=== PATIENT | female | born 1950 | race Caucasian/White ===

== ENCOUNTER → 2023-07-13 12:11 | Outpatient (REF) | payer MEDICARE, OTHER, SELFPAY | LOC: RAD 12:11 | PROVIDERS: ATTENDING PHYSICIAN Physician Assistant Medical | DX: R93.89 Abnormal findings on diagnostic imaging of other specified body structures (principal) | CPT/HCPCS: 71046 ==

== ENCOUNTER → 2023-08-24 12:31 | Outpatient (REF) | payer MEDICARE, OTHER, SELFPAY | LOC: RAD 12:31 | PROVIDERS: ATTENDING PHYSICIAN Physician Assistant Medical | DX: R05.1 Acute cough (principal) | CPT/HCPCS: 71260; Q9967 ==

== ENCOUNTER → 2023-09-28 14:12 | Outpatient (REF) | payer MEDICARE, OTHER, SELFPAY | LOC: RAD 14:12 | PROVIDERS: ATTENDING PHYSICIAN Physician Assistant Medical; REFERRING PHYSICIAN Internal Medicine Critical Care Medicine | DX: E04.1 Nontoxic single thyroid nodule (principal) | CPT/HCPCS: 76536 ==

== ENCOUNTER → 2023-10-23 12:22 | Outpatient (REF) | payer MEDICARE, OTHER, SELFPAY | LOC: RAD 12:22 | PROVIDERS: ATTENDING PHYSICIAN Physician Assistant Medical | DX: R05.1 Acute cough (principal) | CPT/HCPCS: 71046 ==

== ENCOUNTER → 2024-02-24 10:53 | Outpatient (REF) | payer MEDICARE, OTHER, SELFPAY | LOC: WDC 10:53 | PROVIDERS: ATTENDING PHYSICIAN Physician Assistant Medical | DX: Z12.31 Encounter for screening mammogram for malignant neoplasm of breast (principal) | CPT/HCPCS: 77063; 77067 ==

== ENCOUNTER → 2025-03-06 13:07 | Outpatient (REF) | payer MEDICARE, OTHER, SELFPAY | LOC: WDC 13:07 | PROVIDERS: ATTENDING PHYSICIAN Physician Assistant Medical | DX: Z12.31 Encounter for screening mammogram for malignant neoplasm of breast (principal); E04.1 Nontoxic single thyroid nodule | CPT/HCPCS: 76536; 77063; 77067 ==

== ENCOUNTER → 2025-03-30 11:00 | Outpatient (REF) | payer MEDICARE, OTHER, SELFPAY | LOC: RAD 11:00 | PROVIDERS: ATTENDING PHYSICIAN Internal Medicine; FAMILY PHYSICIAN Physician Assistant Medical | DX: M81.0 Age-related osteoporosis without current pathological fracture (principal) | CPT/HCPCS: 77080 ==

== ENCOUNTER → 2025-04-05 10:33 | Outpatient (REF) | payer MEDICARE, OTHER, SELFPAY ==
[2025-04-05 10:40] VITALS: BP 189/90; BP_SYST 83
== END ==
LOC: RADI 10:33
PROVIDERS: ATTENDING PHYSICIAN Physician Assistant Medical
DX: E04.1 Nontoxic single thyroid nodule (principal)
CPT/HCPCS: 10005; 88173

== ENCOUNTER 2025-05-09 19:18 | Inpatient (IN) | payer MEDICARE, OTHER, SELFPAY ==
[2025-05-03 13:15] VITALS: BMI 23.3
[2025-05-09] VITALS (17 sets, daily range): BP systolic 93–180; BP diastolic 54–109; BMI 23.3
[2025-05-09] MEDS: NORMOSOL-R/PLASMALYTE-A 1000 IV (12:30)
[2025-05-09] MEDS: TYLENOL 1000 MG PO (12:46)
[2025-05-09] MEDS: NEURONTIN 300 MG PO (12:46)
[2025-05-09] MEDS: HEPARIN 5000 UNITS SC (13:56)
--- NOTE | 2025-05-09 15:35 | OR.RPT ---
Operative Report
Operative Report
DATE OF OPERATION: May 09, 2025
PREOPERATIVE DIAGNOSIS: Left Thyroid Nodule - E041
POSTOPERATIVE DIAGNOSIS: Same
SURGEON: Chris Islas M.D.
OPERATION: Left Thyroidectomy and Left Level Limited Neck Dissection � 11885
Autotransplant of Left Superior and Inferior Parathyroid Glands in the Right SCM muscle
ANESTHESIA: GET
ESTIMATED BLOOD LOSS: 1 cc
DRAINS: None
SPECIMEN: left total thyroid lobe and isthmus and left level paratracheal tissue
FINDINGS: Left thyroid nodule
COMPLICATIONS: None
PROCEDURE:
The patient was taken to the operating room and placed in the usual supine position. After adequate general endotracheal anesthesia was established, the patient�s neck was extended, prepped, and draped in the typical sterile fashion. A 4 cm
transcervical incision was made two fingerbreadths above the sternal notch. The skin incision was made with the #15 blade, which was taken through the skin into the subcutaneous tissue. The underlying platysma muscle was divided, and subplatysmal
flaps were created superiorly to the thyroid cartilage and inferiorly to the sternal notch. Strap muscles were identified and at the midline.
Attention was turned to the patient�s left thyroid lobe. The left thyroid lobe was mobilized medially. During this process, the left middle thyroid vein and inferior thyroid artery were dissected and ligated with Ligasure. Next, the left superior
pole was taken down by dissecting and transecting the superior pole vessels with a Ligasure. The left thyroid lobe was mobilized medially. During this process, the left recurrent laryngeal nerve was identified and preserved throughout its entire
course. The left superior and inferior parathyroid glands were identified and preserved. The left thyroid lobe with isthmus was resected from the trachea and sent to the pathology department.
At this time, the left neck dissection was performed. The tissue between the left carotid artery to the trachea into the anterior mediastinum was carefully dissected. The previously identified recurrent laryngeal nerve and parathyroid glands were
preserved. The tissue was removed and sent to the pathology department.
The left inferior and superior parathyroid glands appeared ischemic; therefore, a decision was made to autotransplant them. The glands were removed, minced with a #10 blade, and then autotransplanted into the right SCM muscle.
After achieving adequate hemostasis, the strap muscle was approximated with #3-0 Vicryl in a running fashion, and the platysma muscles were reapproximated with #3-0 Vicryl in an interrupted manner. The skin was then closed with #4-0 Monocryl in a
running subcuticular technique. Steri-strips and sterile dressings were applied. The patient tolerated the procedure well. The final instrument, needle, and sponge counts were correct.
--- NOTE | 2025-05-09 18:58 | HPS.HSE ---
Family Physician
-
Family Physician: Philomena Brown PA-C
Chief Complaint
-
Postoperative complication
History of Present Illness
This is a 75-year-old female with past medical history significant for hypertension, hyperlipidemia, lupus, history of polycythemia, mitral and aortic insufficiency who presents to ICU status post thyroid surgery with complicated by bladder post
partial thyroidectomy bleeding.
Patient had a history of thyroid nodule that was nonfunctional and had a Left Thyroidectomy and Left Level Limited Neck Dissection. Initial procedure was uneventful. As the patient was present in the PACU she developed increasing neck swelling
and hoarseness. There was concern for airway compromise. Patient was intubated and taken back to the OR. In the OR she was found to have small arterial bleed that was ligated. There was decompression and patient was kept intubated for monitoring.
Initial vital signs chest x-ray in the PACU showed a blood pressure of 96/59, pulse of 65 oxygen saturation 100% and a temp of 98.3.
Medical History
Past Medical History
Past Medical History: Reports HTN, Hypercholesterolemia, Valvular Disease (Mitral insufficiency, aortic insufficiency) and Other (Low pulse, polycythemia,)
Past Surgical History: Reports Bowel Resection (Colon resection 1977) and (X 2)
Social History
Tobacco: Non-smoker
Alcohol: None
Family History
Family History: Not pertinent
Allergies / Home Medications
Allergies reflects when Allergies were last updated in [facility].
Home Medications with original date entered in [facility]
Allergy/Medication List:
Allergies
Allergy/AdvReac Type Severity Reaction Status Date / Time
meperidine HCl (From Demerol) Allergy Rash Verified 05/09/25 12:31
morphine Allergy Rash Verified 05/09/25 12:31
nitrofurantoin (From AdvReac 'felt Verified 05/09/25 18:54
Macrobid) sicker',pain
in back
Home Medications
hydroxychloroquine 200 mg tablet 200 mg PO BID 05/13/13
atorvastatin 10 mg tablet 10 mg PO DAILY 05/05/25
cholecalciferol (vitamin D3) 50 mcg (2,000 unit) capsule (Vitamin D3) 50 mcg PO DAILY 05/05/25
lisinopril 10 mg tablet 10 mg PO DAILY 05/05/25
primidone 50 mg tablet 100 mg PO BID 05/05/25
sertraline 50 mg tablet 50 mg PO DAILY 05/05/25
Vitamin B-12 2,000 mg PO DAILY 05/09/25
Review of Systems
-
Unable to obtain full review of systems at this time due to: Patient Intubation
Physical Exam
Vital Signs
Vital Signs
Temp Pulse Resp BP Pulse Ox
98.3 F 65 18 96/59 100
05/09/25 15:50 05/09/25 18:03 05/09/25 18:03 05/09/25 18:03 05/09/25 18:03
Physical Exam
General: Well Developed and Intubated
HEENT: NormoCephalic, Moist mucous membranes and Atraumatic
Respiratory: Clear
Cardiac: S1/S2 and Regular Rhythm; No Murmur or Rub
GI: Soft, Non Tender, Non Distended and Normal Bowel Sounds; No Organomegaly
Rectal: Deferred by Provider
Genito-urinary: Deferred by me
Musculoskeletal: No Clubbing, No Cyanosis and No Edema
Skin: No Rash
Neuro: Nonfocal/grossly intact, Sedated and Other (intubated)
Data Reviewed
-
Lab Data: Labs Reviewed by me and Discussed with Physician
Old Records: Reviewed
Impression/Plan
-
IMPRESSION:
75-year-old female with past medical history significant for lupus, hypertension, hyperlipidemia, mitral and aortic insufficiency, polycythemia who is postop day #1 status post partial thyroidectomy for nonfunctional thyroid nodule complicated by
postoperative bleeding requiring intubation for airway protection as well as repeat evaluation in the OR showing bleeding vessel that was ligated, hemostasis achieved and patient now intubated and sent to the ICU. She is to remain in the ICU
intubated overnight to continue to monitor.
PLAN:
Postoperative complication -head and neck bleeding status post partial thyroidectomy, ligated and hemostasis achieved blood patient remains intubated
� Admit to ICU
� Patient is currently on vent settings at 450 16 5 and 100% satting 100%, wean as tolerated, obtain ABG
�Patient has no underlying respiratory issues, will check postintubation x-ray
� Obtain ECG
� Obtain basic CBC, chemistries as well as PT/INR
� Can hold off on usual oral medications for now including atorvastatin, lisinopril sertraline
� Wean and extubate in a.m.
� Progress Developer consultation
DVT prophylaxis�SCD for now
CODE STATUS�full code
[2025-05-09 19:08] LABS: Glucose - Point of Care 111 mg/dl (70-99)
[2025-05-09] MEDS: SUBLIMAZE 50 MCG IV ×3 (19:15→21:56)
[2025-05-09] MEDS: SUBLIMAZE 100 IV (19:17)
--- NOTE | 2025-05-09 19:30 | PTCARENOTE ---
Rec'd patient from OR team. Patient is on Precedex drip for sedation at this time. She awakens to voice and follows commands and nods head appropriately. States she is in pain. Fentanyl drip started for pain control. She is restrained bilateral
upper extremities. She is in NSR on the monitor. No edema on exam. Pulses palpable. ETT 8.0 tube @ 21 at the lip. Lung sounds diminished in the bases. Small amount of bloody secretions in line. Patient is on CMV with rate at 16, 450 TV, 5 PEEP, 80%
FiO2. Abdomen is soft, nontender, bowel sounds present. Temp sensing Parker catheter placed at bedside. Draining light yellow urine. Core temp 96.0F, warm blankets placed. Swelling and bruising at surgical site. Slightly more swelling on L side of
throat than R side. Tissues soft. Skin otherwise intact. Arrived with one 20g peripheral. Attempted multiple peripheral IV sites before contacting IV team who obtained another 20g in the L arm. Precedex, Fentanyl, IV fluids started.
[2025-05-09] MEDS: COLACE LIQUID TUBE (19:49)
[2025-05-09] MEDS: MYSOLINE TUBE (19:50)
[2025-05-09 20:55] LABS: Venous Blood Gas B.E. -1.9 mmol/L (-4 to +4); Venous Blood Gas O2 Sat % 99.6 %; Venous Blood Gas O2 Therapy 80
[2025-05-09 21:07] LABS: APTT 24.5 Sec (23.4-35.0); INR 1.14; PT 14.7 Sec (11.4-14.6)
[2025-05-09 21:08] LABS: ALT (SGPT) 22 U/L (0-35); AST (SGOT) 29 U/L (14-36); Albumin 3.7 g/dl (3.5-5.0); Alkaline Phosphatase 67 U/L (38-126); Blood Urea Nitrogen 14 mg/dl (7-17); Calcium 8.1 mg/dl (8.4-10.2); Carbon Dioxide 20 mmol/L (22-30); Chloride 101 mmol/L (98-107); Estimated Creatinine Clearance 51 ml/min; Glucose 112 mg/dl (70-99); Hematocrit 34.8 % (37.0-47.0); Hemoglobin 11.6 g/dL (12.0-16.0); Mean Corp Hgb Conc. 33.3 g/dL (33.0-37.0); Mean Corpuscular Volume 93.0 fL (81.0-99.0); Potassium 4.2 mmol/L (3.5-5.1); Red Cell Dist. Width 12.1 % (11.5-14.5); Sodium 132 mmol/L (135-145); Total Protein 6.3 g/dl (6.3-8.2); eGFR > 60.00
--- NOTE | 2025-05-09 21:15 | PTCARENOTE ---
CONTRACTS ADMINISTRATOR made aware of patient's continued high BP. 5mg of hydralazine ordered. Patient's blood pressure sufficiently reduced.
[2025-05-09 21:21] LABS: Platelet Count 69 10^3/uL (130-400)
[2025-05-09] MEDS: APRESOLINE 5 MG IV (22:02)
[2025-05-09] MEDS: PRECEDEX 100 IV (23:25)
[2025-05-10] VITALS (28 sets, daily range): BP systolic 97–140; BP diastolic 45–98; BMI 24.1
[2025-05-10] MEDS: NSS 1000 IV ×2 (00:57→17:35)
[2025-05-10] MEDS: SUBLIMAZE 50 MCG IV ×2 (03:10→07:42)
[2025-05-10] MEDS: SUBLIMAZE 100 IV (04:05)
[2025-05-10 04:06] LABS: Blood Urea Nitrogen 16 mg/dl (7-17); Calcium 7.1 mg/dl (8.4-10.2); Carbon Dioxide 19 mmol/L (22-30); Chloride 106 mmol/L (98-107); Estimated Creatinine Clearance 58 ml/min; Glucose 100 mg/dl (70-99); Magnesium 1.6 mg/dl (1.6-2.3); Potassium 3.9 mmol/L (3.5-5.1); Sodium 133 mmol/L (135-145); eGFR > 60.00
[2025-05-10] MEDS: PRECEDEX 100 IV ×2 (04:08→08:41)
--- NOTE | 2025-05-10 04:16 | PTCARENOTE ---
Patient sedated on precedex and fentanyl. Swelling in neck from surgery site has decreased, tissues soft. BP within acceptable range. No other changes in assessment.
[2025-05-10 04:31] LABS: Hematocrit 27.8 % (37.0-47.0); Hemoglobin 9.8 g/dL (12.0-16.0); Mean Corp Hgb Conc. 35.3 g/dL (33.0-37.0); Mean Corpuscular Volume 88.3 fL (81.0-99.0); Platelet Count 72 10^3/uL (130-400); Red Cell Dist. Width 12.2 % (11.5-14.5)
--- NOTE | 2025-05-10 07:47 | W.PN.ANS.POP ---
Anesthesia Post Operative
- Anesthesia Post Op Note
Vital Signs Stable-See Nursing Note: Yes
Airway Patent: Yes (remains intubated in ICU)
Adequate Pain Control: Yes
Change in Mental Status: No (communicating via pen & paper)
Current Postoperative Nausea & Vomiting: No
Anesthesia Complications: No
General Anesthetic Recall: No
Unplanned Admission: No
Post Op Hydration Adequate: Yes
--- NOTE | 2025-05-10 08:19 | W.PN.HOSP.TC ---
Today's Communication/Plan
-
see plan
Assessment / Plan
Assessment / Plan
IMPRESSION:
75-year-old female with past medical history significant for lupus, hypertension, hyperlipidemia, mitral and aortic insufficiency, polycythemia who is postop day #1 status post partial thyroidectomy for nonfunctional thyroid nodule complicated by
postoperative bleeding requiring intubation for airway protection as well as repeat evaluation in the OR showing bleeding vessel that was ligated, hemostasis achieved and patient now intubated and sent to the ICU. She is to remain in the ICU
intubated overnight to continue to monitor.
OPERATION: Left Thyroidectomy and Left Level Limited Neck Dissection � 48747
Autotransplant of Left Superior and Inferior Parathyroid Glands in the Right SCM muscle
PLAN:
Postoperative complication -head and neck bleeding status post partial thyroidectomy, ligated and hemostasis achieved blood patient remains intubated
� Admit to ICU
- vent management per technology recruiter; likely extubated later this morning
- follow up further technology recruiter recommendations
-resume home meds when able to take pO
DVT prophylaxis�SCD for now
CODE STATUS�full code
Anticipated Discharge: 24 - 48 hours
Subjective/Interval History
-
Date of Service: May 10, 2025
patient intubated
easily aroused
Objective Data
-
Labs:
Laboratory Results
05/09/25 05/10/25 05/10/25
20:47 03:20 03:25
WBC 5.2 3.5 L
Hgb 11.6 L 9.8 L
Hct 34.8 L 27.8 L
Plt Count 69 L D 72 L
PT 14.7 H
INR 1.14
APTT 24.5
Sodium 132 L 133 L
Potassium 4.2 3.9
Chloride 101 106
Carbon Dioxide 20 L 19 L
BUN 14 16
Creatinine 0.8 0.7
Glucose 112 H 100 H
Calcium 8.1 L 7.1 L
Total Bilirubin 0.4
AST 29
ALT 22
Alkaline Phosphatase 67
Vital Signs:
Vital Signs
Temp Pulse Resp BP Pulse Ox
99.0 F 67 16 134/67 100
05/10/25 08:06 05/10/25 07:45 05/10/25 07:45 05/10/25 07:00 05/10/25 08:00
I&O
05/09/25 05/10/25 05/11/25
06:59 06:59 06:59
Intake Total 1308.1 / 1399.8 183.4 / 183.4
Output Total 430 / 450 45 / 45
Balance 878.1 / 949.8 138.4 / 138.4
Review of Systems
-
History Source: Patient
All other systems: Reviewed and negative
Physical Exam
-
General: Other (intubated)
HEENT: PERRLA and Other (left neck bruising; bandage over incision site c/d/i)
Respiratory: Clear to Auscultation; Negative Wheezes
GI: Nontender
Musculoskeletal: No Edema
Skin: Warm and Dry; Negative Rash
Neuro: AO x 3
Psych: Calm
Data Reviewed
-
Diagnostic Radiology: Report Reviewed by me
Labs: Labs Reviewed by me
--- NOTE | 2025-05-10 08:48 | CON.INTV ---
Consultation
Consultation Request
Date/Time Consultation Requested: 05/10/2025
Date/Time Consultation Performed: 05/10/2025
Requesting Provider: Dr. Knowles
Performing Provider: Dr. Luis Fernando Hatch
Reason for Consultation: Acute respiratory failure requiring mechanical ventilation.
Medical History
-
History of Present Illness:
75-year-old woman with past medical history significant for hypertension, hyperlipidemia, SLE, history of polycythemia, transferred to the critical care unit post thyroid surgery with complicated postoperative bleed.
Patient underwent partial thyroidectomy due to thyroid nodule-underwent left thyroidectomy with level 4 limited neck dissection.
While in PACU developed increased neck swelling and hoarseness.
Emergently intubated and taken back to the emergency room. Neck dissection exploration performed bleeding was controlled.
Subsequently transferred to the critical care unit for further monitoring mechanical ventilation.
This morning, alert, cooperative, following commands.
Not having progressive neck swelling. Significant hematoma/ecchymosis noted.
Past Medical History
Past Medical History: Other ( See assessment and plan)
Social History
Tobacco: Non-smoker
Alcohol: None
Drug: None
Family History
Family History: Reviewed & Not Pertinent
Allergies / Home Medications
Allergies
Allergy/AdvReac Type Severity Reaction Status Date / Time
meperidine HCl (From Demerol) Allergy Rash Verified 05/09/25 12:31
morphine Allergy Rash Verified 05/09/25 12:31
nitrofurantoin (From AdvReac 'felt Verified 05/09/25 18:54
Macrobid) sicker',pain
in back
Home Medications
�Medication �Instructions �Recorded �Confirmed �Last Taken �Type
hydroxychloroquine 200 mg tablet 200 mg PO BID 05/13/13 05/09/25 05/09/25 07:30 History
atorvastatin 10 mg tablet 10 mg PO DAILY 05/05/25 05/09/25 05/09/25 07:30 History
cholecalciferol (vitamin D3) 50 50 mcg PO DAILY 05/05/25 05/09/25 05/04/25 History
mcg (2,000 unit) capsule (Vitamin
D3)
lisinopril 10 mg tablet 10 mg PO DAILY 05/05/25 05/09/25 05/08/25 13:30 History
primidone 50 mg tablet 100 mg PO BID 05/05/25 05/09/25 05/09/25 07:30 History
sertraline 50 mg tablet 50 mg PO DAILY 05/05/25 05/09/25 05/09/25 07:30 History
Vitamin B-12 2,000 mg PO DAILY 05/09/25 05/09/25 1 Month Ago History
~04/09/25
Review of Systems
-
Unable to Obtain full review of systems at this time due to: Patient Intubation
Vitals / Labs / Diagnostic Testing
Vital Signs
Temp Pulse Resp BP Pulse Ox
99.0 F 67 16 134/67 100
05/10/25 08:06 05/10/25 07:45 05/10/25 07:45 05/10/25 07:00 05/10/25 08:00
Lab Data
05/10/25 03:20
05/10/25 03:25
Laboratory Results
05/09/25
20:47
PT 14.7 H
INR 1.14
APTT 24.5
Diagnostic Testing:
Physical Exam
-
HEENT: Normocephalic and Other (Neck with significant ecchymosis bilaterally and small hematoma on the left. No signs of acute ongoing bleeding.)
Cardiovascular: S1/S2
Respiratory: Clear and Non-Labored Respirations
GI: Soft and Non Distended
Neurology: Awake, Alert and Other (Following commands, moving 4 extremities.)
Skin: Warm
General: Respiratory Distress (Would like to be extubated)
Assessment
-
Acute respiratory failure requiring intubation for airway protection after postoperative neck bleeding.
Patient taken back to the OR from PACU due to postoperative bleed with airway compromise.
Status post partial left thyroidectomy for thyroid nodule
Conditions present prior to admission:
Hypertension
Hyperlipidemia
Mitral insufficiency/aortic insufficiency
Polycythemia
Thyroid nodule
Assessment and plan:
Stable overnight-neck exam has been stable without progressive hematoma. Hemostasis likely achieved.
Hemoglobin 9.8.
Patient is alert, cooperative, following commands.
Mechanical ventilations settings/pulmonary mechanics are acceptable.
Will perform spontaneous breathing trial.
Cuff leak test will be performed prior to extubation.
-
Hopefully can extubate in the next 30 minutes if appropriate.
-
Continue to follow H&H
Surgery to follow later today.
-
N.p.o. for now
- Elevation
Eventually restart all outpatient medications
-
Critical care statement: A total of 31 minutes of critical care time was provided for this patient today. This includes management of unstable vital signs, evaluation of the patient at bedside, reviewing the patient's pertinent medical records
including ventilator settings, arterial blood gases, radiographs, microbiology, laboratory evaluations and discussion with primary team, critical care nursing, and respiratory therapy.
--- NOTE | 2025-05-10 09:09 | PN.CDI ---
CDI
- -
CDI:
Physician Documentation Request
Admit Date: 05/09/25 19:18
Dear Doctor Eleni,
Please review the following and provide your response in the progress notes.
Clinical Indicators:
Pt admitted for complication of post op bleeding after left thyroidectomy
Sodium levels are as below/ Pt did get IVFs
Laboratory Tests
05/09/25 05/10/25
20:47 03:25
Sodium 132 L 133 L
Based on the above, could you clarify in the progress notes, the appropriate diagnosis, if significant, that supports the above abnormalities and additional evaluation, monitoring and/or treatment rendered:
Hyponatremia
Abnormal lab Value
Other ( please specify)
Use of terms such as suspected, likely, concern for, or probable (associated with a specific diagnosis that is being evaluated, monitored, or treated as if it exists) are acceptable and can be coded in the inpatient setting, when documented at the
time of discharge.
Thank you,
Evon Lutz RN
CDI Specialist
[employer]
Please use your independent medical judgment in providing your response.
--- NOTE | 2025-05-10 11:07 | PTCARENOTE ---
Addendum entered by Marleen Betts RN 05/10/25 11:08:
Precedex and Fentanyl gtts off.
Original Note:
updated via phone. Sister, , at bedside assisting to keep patient awake during second attempt of SBT.
--- NOTE | 2025-05-10 11:49 | RESPNOTE ---
pt extubated to room air at 1140 with 02 sats of 95%
air leak assessment performed before extubation and pt is positive for air leak around her ETtube.
--- NOTE | 2025-05-10 12:01 | CM ---
I.A: By JEREMY Bates.
Patient lives with her in a [address] with 3 STI. DME: None, but patient was just extubated this morning.
No VN/PT, No Outpatient, No STR.
PCP: Dr. Philomena Estes
Pharm: [facility]
Patient has transportation home. PLAN: CM to watch for needs.
[2025-05-10] MEDS: LIPITOR 10 MG TUBE (13:01)
[2025-05-10] MEDS: PLAQUENIL 200 MG TUBE (13:01)
[2025-05-10] MEDS: MYSOLINE 100 MG TUBE (13:01)
[2025-05-10] MEDS: ZESTRIL 10 MG TUBE (13:01)
[2025-05-10] MEDS: ZOLOFT 50 MG TUBE (13:01)
[2025-05-10] MEDS: COLACE LIQUID 100 MG TUBE (13:01)
[2025-05-10] MEDS: TYLENOL ORAL SOLUTION 650 MG TUBE (13:13)
--- NOTE | 2025-05-10 14:06 | W.PN.UPDATE ---
Update Note
Progress Note Update
Extubated without difficulty.
No stridor on exam
Advance diet as tolerated
Transfer to telemetry
Critical care team will sign off.
If any respiratory issues arise please call with questions
--- NOTE | 2025-05-10 15:01 | W.DCSUMMARY ---
Discharge Summary
Discharge Data
Date of Admission: 05/09/25
Date of Discharge: 05/11/25
-
Pending Results: No
Hospital Course
Discharging Physician : Dr. Lexi Knowles
Disposition : Home
Primary care physician : Dr. Philomena Brown
Principal Discharge diagnosis : status post partial thyroidectomy complicated by bleeding status post vessel ligation and intubation for airway protection
Hospital Course :
Ms. Inessa Medina is a 75 yo woman with hx essential HTN, HLD, SLE, polycythemia, mitral and aortic insufficiency with nonfunctional thyroid nodule status post left thyroidectomy and left level limited neck dissection on 05/09/25. In PACU
patient developed neck swelling and hoarseness s/p intubation for concern for airway compromise. She was taken back to the OR and found to have a small arterial bleed that was ligated. She remained intubated and admitted to the ICU overnight.
Patient's swelling improved overnight and she was extubated the following morning. Her diet was advanced.
Patient's hg remained stable > 8 prior to discharge. She received 1 dose of IV iron, is discharged on oral iron tabs and given instructions on increasing iron in food.
She will follow up with Dr. Islas as planned.
Time spent on discharge was 32 minutes.
Important imaging findings :
CXR 05/09/25
FINDINGS/IMPRESSION:
The endotracheal tube terminates in the midthoracic trachea 5 cm above the adi.
Minor atelectasis in the lung bases. No focal consolidation, pleural effusion, or pneumothorax. Slight widening of the upper mediastinum in the setting of postoperative bleeding status post partial thyroidectomy.
Procedure findings :
Discharge Plan
-
Patient Disposition: Home (Routine Discharge)
Discharge Diagnosis/Procedures: status post left thyroidectomy with bleeding vessel status post ligation
Condition: Good
Diet: Regular and Other diet
Activity: As tolerated
Driving Restrictions: No driving for 1 week
Bathing Restrictions: OK to Shower
Blood Work: CBC in 2-4 weeks - to be ordered by your primary care doctor
Activity Restrictions/Additional Instructions:
Call Dr. Islas's office ([phone]) for a follow-up appointment
Instructions: Good food sources of iron
Referrals:
Philomena Brown PA-C [Family Provider, Internal Medicine] - in less than 1 week
Chris Islas MD [Active, Surgical]
Additional Discharge Medication Instructions: Follow up with Dr. Islas as planned
You are prescribed Iron pills. Take Thursday, Thursday, Thursday. Discuss with your outpatient provider if it causes constipation. You may take Miralax (over the counter) to help with constipation. You can also focus on increasing food sources of
iron (good food sources form printed out above).
Prescriptions:
New
Slow Fe 137 mg (45 mg iron) tablet extended release
137 mg PO MOWEFR Qty: 30 0RF
Continued
hydroxychloroquine 200 MG tablet
200 mg PO BID
primidone 50 mg Tablet
100 mg PO BID
atorvastatin 10 mg Tablet
10 mg PO DAILY
lisinopril 10 mg Tablet
10 mg PO DAILY
sertraline 50 mg Tablet
50 mg PO DAILY
cholecalciferol (vitamin D3) [Vitamin D3] 50 mcg (2,000 unit) Capsule
50 mcg PO DAILY
Vitamin B-12
2,000 mg PO DAILY
Discharge Orders:
Discharge Patient (As Directed); Ordered 05/11/25
Ordered By: Chris Islas
Discharge Date and Time
Print Language: STATELESS
--- NOTE | 2025-05-10 17:37 | PTCARENOTE ---
Patient doing well on room air, Sp02 93-95%. Denies SOB. NSR on telemetry. Reports minimal pain to incision/throat; PRN tylenol provided. Passed RN swallow eval. Fair appetite for lunch. Downgraded to tele. Parker removed per nursing protocol.
Report called to OSVALDO Coronel. Patient transferred to room 2101. All belongings brought with patient. Patient transferred via WC. Pt spoke with and sister herself about room change. Pt thankful for care.
--- NOTE | 2025-05-10 17:48 | PTCARENOTE ---
pt transferred to room 2101 via WC. pt assisted to transfer to reclining chair in room. pt oriented to room, call lopez and plan of care with verbalized understanding. telemetry placed and reading SR 70's. pt encouraged to continue to drink
liquids. IVF started per JUL. remains due to void after catheter removal. care ongoing.
[2025-05-10] MEDS: TYLENOL ORAL SOLUTION 650 MG PO (19:50)
[2025-05-10] MEDS: PLAQUENIL 200 MG PO (19:53)
[2025-05-10] MEDS: MYSOLINE 100 MG PO (19:56)
[2025-05-10] MEDS: ROXICODONE 5 MG PO (21:59)
[2025-05-11 03:00] VITALS: BP 151/79
[2025-05-11] MEDS: TYLENOL ORAL SOLUTION 650 MG PO (03:04)
[2025-05-11 06:36] LABS: Hematocrit 24.9 % (37.0-47.0); Hemoglobin 8.5 g/dL (12.0-16.0); Mean Corp Hgb Conc. 34.1 g/dL (33.0-37.0); Mean Corpuscular Volume 91.2 fL (81.0-99.0); Platelet Count 69 10^3/uL (130-400); Red Cell Dist. Width 12.6 % (11.5-14.5)
[2025-05-11 06:47] LABS: Blood Urea Nitrogen 16 mg/dl (7-17); Calcium 7.6 mg/dl (8.4-10.2); Carbon Dioxide 27 mmol/L (22-30); Chloride 104 mmol/L (98-107); Estimated Creatinine Clearance 51 ml/min; Glucose 91 mg/dl (70-99); Magnesium 2.0 mg/dl (1.6-2.3); Potassium 3.9 mmol/L (3.5-5.1); Sodium 133 mmol/L (135-145); eGFR > 60.00
--- NOTE | 2025-05-11 07:22 | W.PN.HOSP.TC ---
Today's Communication/Plan
-
expect DC today post IV iron infusion and repeat Hg
Assessment / Plan
Assessment / Plan
IMPRESSION:
75-year-old female with past medical history significant for lupus, hypertension, hyperlipidemia, mitral and aortic insufficiency, polycythemia who is postop day #1 status post partial thyroidectomy for nonfunctional thyroid nodule complicated by
postoperative bleeding requiring intubation for airway protection as well as repeat evaluation in the OR showing bleeding vessel that was ligated, hemostasis achieved and patient now intubated and sent to the ICU. She is to remain in the ICU
intubated overnight to continue to monitor.
OPERATION: Left Thyroidectomy and Left Level Limited Neck Dissection �
Autotransplant of Left Superior and Inferior Parathyroid Glands in the Right SCM muscle
PLAN:
Postoperative complication -head and neck bleeding status post partial thyroidectomy, ligated and hemostasis achieved blood patient remains intubated
-s/p admission to ICU, intubation overnight
-extubated on 05/10
Acute Blood loss anemia 2/2 above
-Hg down to 8.5
-IV iron x 1
-repeat Hg given significant drop - if stable then OK for DC
Essential HTN
-GEOLOGICAL DRAFTER Lisinopril
Depression - GEOLOGICAL DRAFTER Zoloft
Essential Tremors
-GEOLOGICAL DRAFTER Primidone
Hyponatremia
-stable
DVT prophylaxis�SCD
CODE STATUS�full code
Anticipated Discharge: Today
Subjective/Interval History
-
Date of Service: May 11, 2025
throat is sore
able to eat and drink
no shortness of breath
wants to go home
had tremors overnight, waiting for primonidine
Objective Data
-
Labs:
Laboratory Results
05/11/25
05:06
WBC 3.2 L
Hgb 8.5 L
Hct 24.9 L
Plt Count 69 L
Sodium 133 L
Potassium 3.9
Chloride 104
Carbon Dioxide 27
BUN 16
Creatinine 0.8
Glucose 91
Calcium 7.6 L
Vital Signs:
Vital Signs
Temp Pulse Resp BP Pulse Ox
99.2 F 89 16 151/79 96
05/11/25 03:00 05/11/25 03:00 05/11/25 03:00 05/11/25 03:00 05/11/25 03:00
I&O
05/10/25 05/11/25 05/12/25
06:59 06:59 06:59
Intake Total 1308.1 / 1399.8 567.0 / 567.0
Output Total 430 / 450 200 / 200
Balance 878.1 / 949.8 367.0 / 367.0
Review of Systems
-
History Source: Patient
All other systems: Reviewed and negative
Physical Exam
-
General: No Apparent Distress
HEENT: Other (bruising along neck and chest )
Respiratory: Clear to Auscultation and Other (no stridor ); Negative Wheezes
Cardiac: Regular Rhythm and S1/S2
GI: Soft and Nontender
Musculoskeletal: Other (venous stasis discoloration (chronic))
Skin: Warm and Dry; Negative Rash
Neuro: AO x 3
Psych: Calm
Data Reviewed
-
Diagnostic Radiology: Report Reviewed by me
Labs: Labs Reviewed by me
[2025-05-11 08:10] VITALS: BP 170/95
--- NOTE | 2025-05-11 08:36 | W.DS.TRANS ---
DC Summary - [employer]
-
Discharge Instructions:
Sleep Apnea Risk Low
Discharge Diagnosis/Procedures status post left thyroidectomy with bleeding
vessel status post ligation
Diet Regular,Other diet
Activity As tolerated
Driving Restrictions As prior to admission
Bathing Restrictions None
Blood Work CBC in 2-4 weeks - to be ordered by your primary
care doctor
Instructions: Good food sources of iron
Stand-Alone Forms:
Changes to Home Medications: Yes
Discharge Medications:
DC Medications w/original date entered in [facility]
hydroxychloroquine 200 mg tablet 200 mg PO BID Autoimmune Disorder 05/13/13
atorvastatin 10 mg tablet 10 mg PO DAILY High Cholesterol 05/05/25
cholecalciferol (vitamin D3) 50 mcg (2,000 unit) capsule (Vitamin D3) 50 mcg PO DAILY Supplement 05/05/25
lisinopril 10 mg tablet 10 mg PO DAILY Blood Pressure 05/05/25
primidone 50 mg tablet 100 mg PO BID TREMOR 05/05/25
sertraline 50 mg tablet 50 mg PO DAILY Mental Health/Anxiety 05/05/25
Vitamin B-12 2,000 mg PO DAILY Supplement 05/09/25
ferrous sulfate 137 mg (45 mg iron) tablet,extended release (Slow Fe) 137 mg PO MOWEFR #30 tabs 05/11/25
Home Medication Changes
You are prescribed Iron pills. Take Thursday, Thursday, Thursday. Discuss with your outpatient provider if it causes constipation. You may take Miralax (over the counter) to help with constipation. You can also focus on increasing food sources of
iron (good food sources form printed out above).
Pending Results: No
[2025-05-11] MEDS: ZESTRIL 10 MG PO (08:43)
[2025-05-11] MEDS: PLAQUENIL 200 MG PO (08:44)
[2025-05-11] MEDS: MYSOLINE 100 MG PO (08:44)
[2025-05-11] MEDS: LIPITOR 10 MG PO (08:45)
[2025-05-11] MEDS: ZOLOFT 50 MG PO (08:46)
[2025-05-11 09:39] LABS: Hemoglobin 8.8 g/dL (12.0-16.0)
[2025-05-11 10:21] LABS: Iron 20 ug/dl (37-170)
[2025-05-11 10:27] LABS: Total Iron Binding Capacity 219 ug/dl (265-497)
[2025-05-11] MEDS: FERRLECIT 110 MG IV (11:03)
[2025-05-11 11:43] VITALS: BP 152/80
--- NOTE | 2025-05-11 14:21 | CM ---
CM following for discharge planning. Pt s/p Left Thyroidectomy and Left Level Limited Neck Dissection. Intubated post-op, but now extubated with plan for discharge home later today pending labs.
Plan: Discharge to home with no anticipated needs.
[2025-05-11 15:51] LABS: Ferritin 130.0 ng/ml (11.1-264.0)
--- NOTE | 2025-05-27 12:59 | OR.RPT ---
Operative Report
Operative Report
Date of Operation: May 09, 2025, 7:00 PM
Preoperative Diagnosis: Postoperative neck hematoma � M96.841
Postoperative Diagnosis: Same
Surgeon: Chris Islas M.D.
Operation: evacuation of the neck hematoma - [id number]
Anesthesia: Local with IV sedation
Estimated Blood Loss: Minimal
Drains: None
Specimen: none
Complications: None
Procedure:
The patient was already intubated in the recovery room due to rapid swelling of her neck. Additionally, the incision was reopened and packed with sterile gauze. The patient was then taken to the operating room and moved to the operating table. The
patient's neck was prepared and draped in the standard sterile manner. The previously opened and packed incision was carefully examined. The packing was removed, and the old blood clot was evacuated. The left side of the neck was thoroughly
irrigated with sterile saline solution. An actively bleeding left superior thyroid artery was identified. This was controlled by clamping and tying it with 3-0 silk suture. No other bleeding was observed. The wound was irrigated again copiously.
After achieving adequate hemostasis, the strap muscle was approximated with #3-0 Vicryl in a running fashion, and the platysma muscles were reapproximated with #3-0 Vicryl in interrupted manner. The skin was then closed with #4-0 Monocryl in a
running subcuticular technique. Steri-strips and sterile dressings were applied. The final instrument, needle, and sponge counts were correct. The patient was transferred to the ICU and intubated for overnight airway observation.
== END 2025-05-11 14:27 | disposition home or self-care (01) | DRG 907 ==
LOC: 2 SOUTH 19:18
PROVIDERS: Nurse Practitioner Primary Care; Surgery; ADMITTING PHYSICIAN Internal Medicine; ATTENDING PHYSICIAN Student in an Organized Health Care Education/Training Program; CONSULT PHYSICIAN Internal Medicine Critical Care Medicine; FAMILY PHYSICIAN Physician Assistant Medical
PROC: 0JC50ZZ Extirpation of Matter from Left Neck Subcutaneous Tissue and Fascia, Open Approach (ICD-10-PCS; 2025-05-09)
PROC: 0GSQ0ZZ Reposition Multiple Parathyroid Glands, Open Approach (ICD-10-PCS; 2025-05-09)
PROC: 07T20ZZ Resection of Left Neck Lymphatic, Open Approach (ICD-10-PCS; 2025-05-09)
PROC: 5A1935Z Respiratory Ventilation, Less than 24 Consecutive Hours (ICD-10-PCS; 2025-05-09)
PROC: 0GTG0ZZ Resection of Left Thyroid Gland Lobe, Open Approach (ICD-10-PCS; 2025-05-09)
PROC: 03L Upper Arteries, Occlusion (ICD-10-PCS; 2025-05-09)
DX: E89.810 Postprocedural hemorrhage of an endocrine system organ or structure following an endocrine system procedure (principal); J96.00 Acute respiratory failure, unspecified whether with hypoxia or hypercapnia; E87.1 Hypo-osmolality and hyponatremia; E04.1 Nontoxic single thyroid nodule; D75.1 Secondary polycythemia; I08.0 Rheumatic disorders of both mitral and aortic valves; I10 Essential (primary) hypertension; E78.00 Pure hypercholesterolemia, unspecified; Z79.899 Other long term (current) drug therapy
CPT/HCPCS: 71045; 80048; 80053; 82728; 82805; 82962; 83540; 83550; 83605; 83735; 85018; 85027; 85610; 85730; 88307; 88342; 93005; 94002; C9250; J2916